=== PATIENT | female | born 1935 | race Caucasian/White ===

== ENCOUNTER 2020-04-25 08:55 | Inpatient (IN) ==
--- NOTE | 2020-03-29 16:28 | PAT Medication Instructions ---
Medication Instructions Date of Service March 29, 2020 Home Medications amlodipine 2.5 mg tablet 2.5 mg PO QAM atorvastatin 20 mg tablet 20 mg PO QPM budesonide 3 mg capsule,delayed,extended release 9 mg PO QAM cholecalciferol (vitamin D3) 50 mcg (2,000 unit) capsule 50 mcg PO QAM hydrochlorothiazide 12.5 mg capsule 12.5 mg PO QAM lactobacillus combination no.4 3 billion cell capsule 3,000 mmu cells PO QAM multivitamin 1 tab PO QAM quinapril 20 mg tablet 20 mg PO QAM acetylcysteine [NAC] 600 mg PO QAM ascorbic acid (vitamin C) [Vitamin C] 500 mg PO QAM coQ10 (ubiquinol) 100 mg PO QAM STOP taking 2 weeks before surgery (or as soon as possible if surgery is within 2 weeks) coQ10 (ubiquinol) 100 mg PO QAM DO NOT take the morning of surgery cholecalciferol (vitamin D3) 50 mcg (2,000 unit) capsule 50 mcg PO QAM hydrochlorothiazide 12.5 mg capsule 12.5 mg PO QAM lactobacillus combination no.4 3 billion cell capsule 3,000 mmu cells PO QAM multivitamin 1 tab PO QAM quinapril 20 mg tablet 20 mg PO QAM acetylcysteine [NAC] 600 mg PO QAM ascorbic acid (vitamin C) [Vitamin C] 500 mg PO QAM Take morning of surgery With a small sip of water, OTHERWISE NOTHING TO EAT OR DRINK AFTER MIDNIGHT: amlodipine 2.5 mg tablet 2.5 mg PO QAM budesonide 3 mg capsule,delayed,extended release 9 mg PO QAM Take evening before surgery atorvastatin 20 mg tablet 20 mg PO QPM Other Notes If you have any questions please call us at [phone] or [phone] or [phone] or [phone]
--- NOTE | 2020-03-31 12:02 | Anesthesiology Consultation ---
Date of Service March 31, 2020 Assessment & Plan (1) Encounter for pre-operative examination: - Per PAT assessment on 03/31: Travel screen- Lives in [facility]. Travel to [facility]. No known COVID-19 positive contacts. No current COVID-19 related symptoms. Surgeon arranging preop COVID testing. Awaiting results. Chart Review Chart Review: Acceptable Risk for Surgery and Patient seen in Pre Admission Testing Teaching & Discussion Pre-Anesthesia Teaching/Discussion Notes: Instructed NPO after midnight before surgery,except medications with 15 cc of water. Medication instructions provided according to the PAT guidelines. History Surgery Operation Date: 04/25/20 13:00 Proposed Procedures p Right Reverse Total Shoulder Arthroplasty - Aric Velazco, Height/Weight Height: 5 ft 3.5 in Weight: 56.5 kg Allergies Allergy/AdvReac Type Severity Reaction Status Date / Time Penicillins Allergy Intermediate hard Verified 04/01/20 08:24 lump/redness at injection site iodine Allergy Mild redness, Verified 04/01/20 08:24 itchy Medications Home Medications Medication Instructions Recorded Confirmed Last Taken amlodipine 2.5 mg tablet 2.5 mg PO QAM 03/01/20 03/24/20 Unknown atorvastatin 20 mg tablet 20 mg PO QPM 03/01/20 03/24/20 Unknown budesonide 3 mg 9 mg PO QAM 03/01/20 03/24/20 Unknown capsule,delayed,extended release cholecalciferol (vitamin D3) 50 50 mcg PO QAM 03/01/20 03/24/20 Unknown mcg (2,000 unit) capsule hydrochlorothiazide 12.5 mg capsule 12.5 mg PO QAM 03/01/20 03/24/20 Unknown lactobacillus combination no.4 3 3,000 mmu cells PO QAM 03/01/20 03/24/20 Unknown billion cell capsule multivitamin 1 tab PO QAM 03/01/20 03/24/20 Unknown quinapril 20 mg tablet 20 mg PO QAM 03/01/20 03/24/20 Unknown acetylcysteine [NAC] 600 mg PO QAM 03/24/20 03/24/20 Unknown ascorbic acid (vitamin C) [Vitamin 500 mg PO QAM 03/24/20 03/24/20 Unknown C] coQ10 (ubiquinol) 100 mg PO QAM 03/24/20 03/24/20 Unknown Past Medical History Medical History (Updated 04/01/20 @ 08:25 by Alice Acevedo) Colitis chronic steroid (budesonide) History of blood transfusion post-op (1989)- autologous Hyperlipidemia Hypertension Osteoarthritis Restless leg syndrome Exercise / Class Metabolic Activity III < 4 Walking/Shop/Light housework Past Family History Family History Sister Family history of diabetes mellitus Past Surgical History Surgical History H/O: hysterectomy History of carpal tunnel surgery RT/LEFT History of colonoscopy History of dilatation and curettage History of hip surgery LEFT HIP History of tonsillectomy and adenoidectomy History of total hip arthroplasty RT/LEFT [place] teeth removed Past Anesthesia History No Hx of Anesthesia Complications (except post-op nausea) and No Family Hx of Anesthesia Complications History of PONV No Hx of Motion Sickness and History of PONV (+ nausea) Social History Smoking Status: Never smoker Do You Dip or Chew Tobacco: No Hx Alcohol Use: Yes Alcohol type: wine and hard liquor alcohol intake frequency: a few times a month Hx Substance Use: No Review of Systems Patient denies chest pain, shortness of breath, fever, chills, cough, wheezing, palpitations. Physical Exam Vital Signs VITALS BP 151/69 P 91 TEMP 98.4 SP02 97%RA RESP 16 PHYSICAL Full neck and c-spine range of motion. Full TMJ range of motion. TMD 3.5 finger breaths Mallampati Score 3 Dentition: missing molars, + left lower/right upper capped side/molar Lungs: clear throughout to auscultation Cardiac: regular rate and rhythm, no murmurs noted Spine: unremarkable Carotid arteries: negative bruit Extremities: no edema Testing Laboratory Results 03/31/20 12:19 03/31/20 12:19 PT 10.5 Seconds (9.0-12.0) 03/31/20 12: INR 1.0 (0.9-1.1) 03/31/20 12:19 APTT 27.6 Seconds (21.0-31.0) 03/31/20 12:19 Blood Type B Positive 03/31/20 12:19 Antibody Screen NEGATIVE 03/31/20 12:19 Electrocardiogram Date: 03/31/20 NSR at 89bpm. NS TWA. Chest X-Ray Date: 03/31/20 FINDINGS: Cardiomediastinal and hilar silhouettes are within normal limits. Calcified plaque of the thoracic aortic arch. No pneumothorax, pleural effusion, airspace consolidation or overt pulmonary edema. Degenerative changes of the joel ulders and spine. Probable loose body of the left subscapularis recess. Convex right curvature of the mid lumbar spine. IMPRESSION: No acute process.
--- NOTE | 2020-03-31 13:02 | XRay Report ---
XR chest Pre-admission PA/Lat HISTORY: 84 years-old Female pat preoperative exam. No acute chest complaints. COMPARISON: None TECHNIQUE: PA and lateral views of the chest FINDINGS: Cardiomediastinal and hilar silhouettes are within normal limits. Calcified plaque of the thoracic ao rtic arch. No pneumothorax, pleural effusion, airspace consolidation or overt pulmonary edema. Degene rative changes of the shoulders and spine. Probable loose body of the left subscapularis recess. Conv ex right curvature of the mid lumbar spine. IMPRESSION: No acute process. ACT 112: Negative or not required by law. The above report was generated using voice recognition software. It may contain grammatical, syntax o r spelling errors. Electronically signed by: Marcos Dennis M.D. 03/31/2020 1:01 PM
[2020-03-31 14:04] LABS: Basophils # (auto) 0.04 K/uL (0-0.2); Basophils % (auto) 0.4 %; Eosinophils # (auto) 0.05 K/uL (0-0.5); Eosinophils % (auto) 0.5 %; Hematocrit (blood only) 44.7 % (37-47); Hemoglobin 14.6 g/dL (12.0-16.0); Immature Granulocytes # (auto) 0.04 K/uL (0.00-0.02); Immature Granulocytes % (auto) 0.4 %; Lymphocytes # (auto) 2.67 K/uL (1.2-3.4); Lymphocytes % (auto) 24.7 %; Mean Corpuscular Hemoglobin 30.2 pg (25-34); Mean Corpuscular Hgb Conc 32.7 g/dL (32-36); Mean Corpuscular Volume 92.5 fL (80-100); Monocytes # (auto) 0.96 K/uL (0.11-0.59); Monocytes % (auto) 8.9 %; Neutrophils # (auto) 7.04 K/uL (1.4-6.5); Neutrophils % (auto) 65.1 %; Platelet Count 337 K/uL (130-400); RDW Coefficient of Variation 15.3 % (11.5-14.5); Red Blood Count 4.83 M/uL (4.2-5.4)
[2020-03-31 14:15] LABS: Partial Thromboplastin Time 27.6 Seconds (21.0-31.0); Prothrombin Time 10.5 Seconds (9.0-12.0)
[2020-03-31 15:08] LABS: BUN Creatinine Ratio 19.7 (10-20); Calcium 9.8 mg/dl (8.5-10.1); Est GFR (African American) 89.8; Est GFR (Non-African American) 77.4; Potassium 3.4 mmol/L (3.5-5.1)
--- NOTE | 2020-04-01 05:42 | Electrocardiogram Report ---
Test Reason : Blood Pressure : / mmHG Vent. Rate : 089 BPM Atrial Rate : 089 BPM P-R Int : 146 ms QRS Dur : 066 ms QT Int : 366 ms P-R-T Axes : 081 088 -03 degrees QTc Int : 445 ms Normal sinus rhythm Nonspecific T wave abnormality Abnormal ECG No previous ECGs available Confirmed by Tarun Aponte ([id number]) on 04/01/2020 5:42:42 AM Referred By: Aric Velazco Confirmed By:Tarun Aponte
--- NOTE | 2020-04-21 07:40 | History & Physical Report ---
Date of Service April 21, 2020 Assessment & Plan (1) Rotator cuff tear arthropathy of right shoulder: We will proceed with a right reverse shoulder arthroplasty. Postoperatively she will be placed in a sling and kept overnight in the hospital for postoperative medical management. She plans to go to outpatient physical therapy at [facility] in [place] upon discharge. Present on Admission?: Yes History of Present Illness Chief Complaint: Primary osteoarthritis of the right shoulder Primary Care Provider: Maco Fallon is a pleasant 84-year-old female who is been dealing with chronic increasing right shoulder pain and weakness. She says she has trouble doing any activities out away from her body. She is trouble brushing her teeth. It is affecting her daily living. I do have an MRI of her shoulder which shows advanced osteoarthritis and some degeneration of the rotator cuff. After failing conservative treatment, she has elected proceed with a right reverse shoulder arthroplasty. Allergies Allergy/AdvReac Type Severity Reaction Status Date / Time Penicillins Allergy Intermediate hard Verified 04/01/20 08:24 lump/redness at injection site iodine Allergy Mild redness, Verified 04/01/20 08:24 itchy Home Medications Home Medications Medication Instructions Recorded Confirmed Type amlodipine 2.5 mg tablet 2.5 mg PO QAM 03/01/20 03/24/20 History atorvastatin 20 mg tablet 20 mg PO QPM 03/01/20 03/24/20 History budesonide 3 mg 9 mg PO QAM 03/01/20 03/24/20 History capsule,delayed,extended release cholecalciferol (vitamin D3) 50 50 mcg PO QAM 03/01/20 03/24/20 History mcg (2,000 unit) capsule hydrochlorothiazide 12.5 mg capsule 12.5 mg PO QAM 03/01/20 03/24/20 History lactobacillus combination no.4 3 3,000 mmu cells PO QAM 03/01/20 03/24/20 History billion cell capsule multivitamin 1 tab PO QAM 03/01/20 03/24/20 History quinapril 20 mg tablet 20 mg PO QAM 03/01/20 03/24/20 History acetylcysteine [NAC] 600 mg PO QAM 03/24/20 03/24/20 History ascorbic acid (vitamin C) [Vitamin 500 mg PO QAM 03/24/20 03/24/20 History C] coQ10 (ubiquinol) 100 mg PO QAM 03/24/20 03/24/20 History Past Med/Surg History Medical History Colitis chronic steroid (budesonide) History of blood transfusion post-op (1989)- autologous Hyperlipidemia Hypertension Osteoarthritis Restless leg syndrome Surgical History H/O: hysterectomy History of carpal tunnel surgery RT/LEFT History of colonoscopy History of dilatation and curettage History of hip surgery LEFT HIP History of tonsillectomy and adenoidectomy History of total hip arthroplasty RT/LEFT [place] teeth removed Family History Sister Family history of diabetes mellitus Social History Smoking Status: Never smoker Second Hand Exposure: No; Hx Alcohol Use: Yes Alcohol type: wine and hard liquor Hx Substance Use: No Preferred Language: Yoruba Sales [employer] Required: No Beliefs That Will Affect Care: None Current Living Situation: Spouse Feels Safe at Home: Yes Review of Systems Review of Systems: All systems reviewed & are unremarkable except as noted in HPI & below Physical Exam Constitutional: WD/WN, vitals as above Eyes: PERRL, conjunctivae normal, anicteric sclerae ENMT: external ear and nose normal, oropharynx normal Neck: trachea midline, no thyromegaly Respiratory: normal respiratory effort Cardiovascular: RRR, no murmur, no edema Gastrointestinal (Abdomen): normal bowel sounds, soft, nontender, no hepatosplenomegaly Musculoskeletal: Physical examination of the right shoulder reveals decreased range of motion and crepitis throughout. There is good strength with full can testing and external rotation. There is tenderness palpation along the anterior glenohumeral joint line. The right upper extremity is neurovascularly intact. Psychiatric: A+Ox3, euthymic affect Results & Data Results & Data ([facility]) Diagnostic Findings Radiographs of the right shoulder show osteoarthritis of the glenohumeral joint. There is joint space narrowing, osteophyte formation, and eddu-ob-tnim articulation. PG Care Time/CCT Total # of Minutes Spent Total Time Spent with Patient: Total time spent is greater than 50% in coordination of care (as documented) at patient's floor/unit and/or counseling patient: Coding Level of Care Code 43533 Initial Inpt Care Lvl 2 Diagnoses Rotator cuff tear arthropathy of right shoulder M75.101; M12.811
[~2020-04-25 08:55] MED LIST: ACETAMINOPHEN 500 MG TAB PO SCH; BUPIVACAINE 0.5 % 5 MG/1 ML PF 10ML VIAL ONE; FAMOTIDINE 20 MG TAB PO SCH; GABAPENTIN 300 MG CAP PO SCH; LR 15ML/HR IV SCH; LR 60ML/HR IV SCH; ROPIVACAINE 0.5% HCL/PF 150 MG, BUPIVACAINE 0.5% MPF 30 ML, EPINEPHrine 30MG/30ML (OR U... INSTIL SCH; TRANEXAMIC ACID 1,000 MG **IV Intra-op IV SCH; TRANEXAMIC ACID 1,000 MG **IV Pre-op IV SCH; ceFAZolin 1000MG 1,000 MG/7.5 ML SYR IV SCH; dexAMETHasone 4 MG TAB PO SCH
[2020-04-25] MEDS ORDERED: LIDOCAINE HCL 2% 2 ML VIAL/AMP(20MG/ML) INFIL ONE (09:43)
[2020-04-25] MEDS ORDERED: PROPOFOL IV EMULSION 10 MG/ML 20 ML VIAL IV ONE (09:43)
[2020-04-25] MEDS ORDERED: fentaNYL citrate 100 MCG/2 ML VIAL ONE ×2 (09:43→10:01)
[2020-04-25] MEDS ORDERED: MIDAZOLAM HCL 1 MG/ML 2ML VIAL ONE ×2 (09:43→10:01)
[2020-04-25] MEDS ORDERED: ONDANSETRON INJ 2 MG/ML 2 ML VIAL ONE (10:01)
[2020-04-25] MEDS ORDERED: ROCURONIUM BROMIDE 10 MG/ML 5 ML VIAL IV ONE (10:03)
[2020-04-25] MEDS ORDERED: HYDROmorphone INJ 1 MG/ML SYRINGE IV PRN (10:43)
[2020-04-25] MEDS ORDERED: PROMETHAZINE HCL 12.5 MG in SODIUM CHLORIDE 0.9% 50 ML IV PRN (10:43)
[2020-04-25] MEDS ORDERED: ePHEDrine sulfate 50 MG/ML AMP IV PRN (10:43)
[2020-04-25] MEDS ORDERED: ONDANSETRON INJ 2 MG/ML 2 ML VIAL IV PRN ×2 (10:43→14:05)
[2020-04-25] MEDS ORDERED: fentaNYL citrate 100 MCG/2 ML VIAL IV PRN (10:43)
[2020-04-25] MEDS ORDERED: METOCLOPRAMIDE HCL INJ 5 MG/ML 2 ML VIAL IV PRN ×2 (10:43→14:05)
[2020-04-25] MEDS ORDERED: ATROPINE SULFATE 0.1 MG/ML 10ML SYR IV PRN (10:43)
--- NOTE | 2020-04-25 10:50 | History & Physical Bridge Note ---
Date of Service April 25, 2020 History & Physical Bridge Note I have examined the patient, reviewed the History & Physical and in the interval since the performance of the History & Physical I have noted the following changes of clinical significance: no changes noted
[2020-04-25] MEDS ORDERED: ORTHO JOINT ANESTHETIC ONE (11:02)
[2020-04-25] MEDS ORDERED: NEOSTIGMINE METHYLSULFATE 5 MG/5 ML SYR ONE (11:50)
[2020-04-25] MEDS ORDERED: GLYCOPYRROLATE 0.2 MG/ML VIAL ONE (11:50)
[2020-04-25] MEDS ORDERED: ePHEDrine sulfate 50 MG/ML SYR ONE (11:50)
--- NOTE | 2020-04-25 12:33 | Operative Report ---
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 (Modifier 59) (Right) - Aric Velazco DO Surgeon Aric Velazco DO Policy Intern Aric Gould PAC Estimated Blood Loss 200 Findings Consistent with Post-Op Diagnosis Specimens Right humeral head Complications none Disposition Disposition: Recovery Room Indications Leeanne is a pleasant 84-year-old female who is been dealing with chronic increasing right shoulder pain. X-rays, MRI, and clinical examination were all diagnostic for advanced osteoarthritis of the right shoulder. After failing conservative treatment, she elected to proceed with a right reverse shoulder arthroplasty. Description of Procedure A CPT code modifier 59: The long head of the biceps tendon was enlarged and inflamed consistent with tendinopathy. A tenodesis was opted. This was a separate and distinct portion of the procedure. For these reasons, a CPT code modifier 59 will be added to this case. Implants used: I used a [employer] Comprehensive reverse total shoulder arthroplasty system with a size 12 press fit micro humeral stem, a +6 humeral tray and a standard humeral bearing, a 25 mm small augmented baseplate with a 6.5 mm central screw and superior and inferior locking screws, and a size 40 mm eccentric glenosphere. Leeanne arrived at [facility] for the above procedure. She was seen in the preoperative holding area and the operative extremity was identified and signed. She was given a preoperative antibiotic, TXA, and an interscalene nerve block. She was taken back to the operating room, laid on table in supine position, and put under general anesthesia. She was then put into the beachchair position. The shoulder was then prepped and draped in sterile fashion. A timeout was done and the patient and the operative extremity was properly identified. A deltopectoral approach was used. Dissection was taken down through the fascia and the deltoid was retracted laterally and the conjoined tendon was retracted medially. The anterior shoulder was exposed. The biceps groove was opened up and the biceps tendon was examined extensively. The biceps tendon demonstrated enlargement and inflammatory changes consistent with longstanding inflammation in the context of osteoarthritis and cuff arthropathy. The long head of the biceps tendon was then tenodesed to the upper border of the pectoralis major. This was a separate and distinct portion of the procedure. The subscapularis was then directly released off the lesser tuberosity with a peel technique. The inferior capsule was released and the humeral head was dislocated. A canal finding reamer was sent down the center of the humeral canal. S equential reaming up to a size 12 reamer was done. Off that reamer, a proximal humeral resection guide was placed. The proximal humerus was resected at 135 of inclination and 25 of retroversion. Osteophytes were then removed and the glenoid was exposed. Time was spent doing a complete capsular and labral release. The glenoid guide was then placed in the inferior aspect of the glenoid. A 3.2 mm Steinmann pin was then placed into the glenoid vault at 10 of inclination. The glenoid baseplate was then reamed. The final size 25 mm small augment baseplate was then impacted in the place. A 6.5 mm central screw was then placed followed by superior and inferior locking screws. A 40 mm eccentric glenosphere was then impacted into place. Surrounding soft tissues were then injected with 100 cc an orthopedic pain control cocktail. The proximal humerus was then exposed. Sequential broaching of the humerus up to a size 12 broach was done. Off that broach a +6 humeral tray was trialed. The shoulder was then reduced, brought through a full range of motion, and felt to be stable. The shoulder was then dislocated and the broach was removed. The final size 12 micro press-fit humeral stem was then impacted into place. A standard humeral bearing was then snapped onto a +6 humeral tray. The humeral tray was then impacted onto the humeral stem. The shoulder was once again reduced, brought through a full range of motion, and felt to be stable. The subscapularis was then tenodesed back to the lesser tuberosity with transosseous FiberWire sutures and side to side sutures with the arm in 45 of external rotation. A dilute betadyne lavage was then done for 3 minutes. The joint was then irrigated with normal saline solution. Hemostasis was obtained. The interval was closed with 2-0 Vicryl suture. The skin was then closed with 2-0 Vicryl and juan. When the adhesive dressings were being removed there was a large skin tear. There is almost a degloving type injury of just the very most superficial epithelial layer. This was documented. The shoulder was then dressed with Adaptic, large bulky dressing and paper tape. The arm was rested in a regular arm sling. She was then extubated and transferred to a hospital bed. She taken to the postanesthesia care unit in stable condition. She tolerated the procedure well. Aric Gould PA-C, was present for the entire procedure. He was critical for patient positioning, prepping, draping, retraction exposure, wound closure and application of sterile dressing. I attest to the content of the Intraoperative Record and any orders documented therein. Any exceptions are noted below.
--- NOTE | 2020-04-25 13:42 | XRay Report ---
XR shoulder RT min 2V routine HISTORY: 84 years-old Female Post op right shoulder total joint arthroplasty COMPARISON: Chest radiograph 03/31/2020 TECHNIQUE: 2 views of the right shoulder FINDINGS: Reverse right shoulder total joint arthroplasty demonstrates satisfactory alignment. No acute fractur e or retained foreign body. Expected postsurgical soft tissue swelling and deep tissue air with overl edis skin juan. IMPRESSION: Reverse right shoulder total joint arthroplasty with expected postoperative changes. ACT 112: Negative or not required by law. The above report was generated using voice recognition software. It may contain grammatical, syntax o r spelling errors. Electronically signed by: Marcos Dennis M.D. 04/25/2020 1:41 PM
--- NOTE | 2020-04-25 13:59 | Anesthesiology Progress Note ---
Date of Service April 25, 2020 Anesthesia Post Procedure Vital Signs Vital Signs: Temp Pulse Pulse Resp BP Pulse Ox 04/25/20 13:30 36.3 C L 83 21 123/60 93 04/25/20 13:15 78 21 130/61 94 04/25/20 13:05 78 21 136/74 95 04/25/20 12:55 75 21 141/65 H 99 04/25/20 12:49 36.0 C L 78 19 139/61 99 04/25/20 10:08 36.8 C 88 18 207/98 H 100 Pain Intensity Right Shoulder: Pain Intensity: 0 Transfer of Care Handoff Completed per policy Notes Mental Status: alert / awake / arousable and participated in evaluation Patient Amnestic to Procedure: Yes Nausea / Vomiting: adequately controlled Pain: adequately controlled Airway Patency, RR, SpO2: stable & adequate BP & HR: stable & adequate Hydration State: stable & adequate Anesthetic Complications: no major complications apparent
[2020-04-25] MEDS ORDERED: bisacodyL 10 MG SUPP PR PRN (14:05)
[2020-04-25] MEDS ORDERED: MAGNESIUM HYDROXIDE SUSP 30 ML UDC PO PRN (14:05)
[2020-04-25] MEDS ORDERED: NALOXONE HCL 0.4 MG/1 ML VIAL/CARP IV PRN (14:05)
[2020-04-25] MEDS ORDERED: HYDROmorphone INJ 0.5 MG/0.5 ML SYR IV PRN (14:05)
[2020-04-25] MEDS ORDERED: traMADol HCL 50 MG TABLET PO PRN (14:05)
[2020-04-25] MEDS: SODIUM CHLORIDE 0.9% 1000ML 1,000 ML IV SCH (14:43)
[2020-04-25] MEDS: ACETAMINOPHEN 500 MG TAB PO SCH ×2 (14:44→21:00)
[2020-04-25] MEDS ORDERED: COUGH DROP (SUGAR FREE) LOZ 24 LOZ/1 BOX BUCCAL ONE (18:02)
[2020-04-25] MEDS: KETOROLAC TROMETHAMINE 15 MG/ML VIAL IV SCH ×2 (18:06→23:50)
[2020-04-25] MEDS: ceFAZolin 2000MG 2,000 MG/15 ML SYR IV SCH (20:58)
[2020-04-25] MEDS: DOCUSATE SODIUM 100 MG CAP PO SCH (20:58)
[2020-04-25] MEDS ORDERED: ATORVASTATIN 20 MG TAB PO SCH (21:00)
[2020-04-25] MEDS ORDERED: SENNA 8.6 MG TAB PO SCH (21:00)
[2020-04-26] MEDS: SODIUM CHLORIDE 0.9% 1000ML 1,000 ML IV SCH (01:25)
[2020-04-26] MEDS: KETOROLAC TROMETHAMINE 15 MG/ML VIAL IV SCH ×2 (05:12→12:43)
[2020-04-26] MEDS: ceFAZolin 2000MG 2,000 MG/15 ML SYR IV SCH (05:12)
[2020-04-26] MEDS: ACETAMINOPHEN 500 MG TAB PO SCH (05:12)
[2020-04-26 06:17] LABS: Hematocrit (blood only) 36.3 % (37-47); Hemoglobin 12.7 g/dL (12.0-16.0); Immature Granulocytes # (auto) 0.05 K/uL (0.00-0.02); Immature Granulocytes % (auto) 0.3 %; Lymphocytes # (auto) 1.16 K/uL (1.2-3.4); Lymphocytes % (auto) 6.5 %; Mean Corpuscular Hemoglobin 32.1 pg (25-34); Mean Corpuscular Volume 91.7 fL (80-100); Mean Platelet Volume 9.6 fL (7.4-10.4); Monocytes # (auto) 1.19 K/uL (0.11-0.59); Monocytes % (auto) 6.6 %; Neutrophils # (auto) 15.52 K/uL (1.4-6.5); Neutrophils % (auto) 86.6 %; Platelet Count 285 K/uL (130-400); RDW Coefficient of Variation 14.8 % (11.5-14.5); RDW Standard Deviation 50.3 fL (36.4-46.3); Red Blood Count 3.96 M/uL (4.2-5.4); White Blood Count 17.92 K/uL (4.8-10.8)
[2020-04-26 06:52] LABS: BUN Creatinine Ratio 18.2 (10-20); Creatinine Clr Calc Pharmacy 44.9 ml/min; Est GFR (African American) 76.7; Est GFR (Non-African American) 66.2; Potassium 3.9 mmol/L (3.5-5.1)
--- NOTE | 2020-04-26 06:59 | Orthopedic Progress Note ---
Date of Service April 26, 2020 Assessment & Plan (1) Status post reverse total replacement of right shoulder: Overall she is doing well. She is not having much pain in the right shoulder. She will be seen by physical therapy this morning for ambulation and range of motion exercises. She can be discharged home later today. She will follow-up with orthopedics in 2 weeks. Present on Admission?: Yes Admission and Anticipated Discharge Date Admission Date: April 25, 2020 Cindi Fallon was seen and examined at bedside this morning. Overall she is doing very well. She is not having any pain in the right shoulder. I talked to her and her family earlier about the skin tear on her right arm. She understands that she has very thin skin. She did not seem too concerned about it. She is happy that her shoulder is doing well. She has no new complaints. Physical Exam Musculoskeletal: On physical examination of the right shoulder, the dressing is clean and dry. She is wearing her sling as instructed. Her radial, median, and ulnar nerves are checked intact at her wrist. Her axillary nerve was not checked yet. Results & Data ([facility]) Vital Signs (Past 12 Hours) Vital Signs Temp Pulse Pulse Resp BP Pulse Ox 04/26/20 02:30 36.4 C L 77 16 147/77 H 94 04/25/20 22:57 36.7 C 79 16 138/76 97 04/25/20 20:15 36.4 C L 81 16 152/78 H 96 Laboratory Results H & H 03/31/20 04/26/20 Range/Units 12:19 05:38 Hgb 14.6 12.7 (12.0-16.0) g/dL Hct 44.7 36.3 L (37-47) % Coagulation 03/31/20 Range/Units 12:19 INR 1.0 (0.9-1.1) Diagnostic Findings Postoperative x-rays of the right shoulder show the prosthesis to be in anatomic alignment without any evidence of fracture, dislocation, or loosening. PG Care Time/CCT Total # of Minutes Spent Total Time Spent with Patient: Total time spent is greater than 50% in coordination of care (as documented) at patient's floor/unit and/or counseling patient: Coding Level of Care Code None Diagnoses Status post reverse total replacement of right shoulder Z96.611
--- NOTE | 2020-04-26 07:01 | Discharge Summary ---
Date of Service April 26, 2020 Admission HPI Per Admitting Provider Leeanne is a pleasant 84-year-old female who is been dealing with chronic increasing right shoulder pain and weakness. She says she has trouble doing any activities out away from her body. She is trouble brushing her teeth. It is affecting her daily living. I do have an MRI of her shoulder which shows advanced osteoarthritis and some degeneration of the rotator cuff. After failing conservative treatment, she has elected proceed with a right reverse shoulder arthroplasty. Principal Diagnosis Right reverse shoulder replacement Discharge Data Allergies Allergy/AdvReac Type Severity Reaction Status Date / Time iodine Allergy Mild redness, Verified 04/25/20 10:04 itchy Penicillins AdvReac Intermediate hard Verified 04/25/20 10:04 lump/redness at injection site Consultations 04/25/20 14:05 Consult Case Management - Discharge Planning Routine Procedures Performed Operation Date: 04/25/20 11:10 Actual Procedures p Right Reverse Total Shoulder Arthroplasty(Right) - Aric Velazco DO Ordered Studies 04/25/20 05:00 US - OR guided needle placemen Routine Hospital Course (1) Status post reverse total replacement of right shoulder: On April 25, 2020 Tai arrived at [facility] and underwent a right reverse shoulder replacement without complication. She had a general anesthetic and a right interscalene nerve block. Postoperatively she was placed in a sling and transferred to the general orthopedic floors. The hospital course was uneventful. On postop day #1 the H&H was stable and the pain was well controlled. She was able to participate well with physical therapy doing ambulation and range of motion exercises. She was then discharged home. She will follow-up with orthopedics in 2 weeks. Total Time Total Time Spent Total Time Spent (In Minutes): 20 Discharge Plan Discharge Items Patient Disposition: Home - Home Health Services Reason For Visit: Right Shoulder Degenerative Joint Disease Discharge Diagnosis: Right shoulder replacement Activity: As commented below Non-emergency contact: Surgeon Call non-emergency contact if: your wound has increased redness and your wound has increased drainage Follow-up/Referrals: Maco Ballard [Primary Care Provider] - Diet: Regular Addtl Attending Provider Instructions: Activity and Therapy Recommendations: * If you are using [facility] then therapy will be provided at your home until they feel you have accomplished all of your goals. * If you are using [facility] then Physical Therapy will be provided until they feel you are ready to start Outpatient Physical Therapy. * If you are not using home therapy then Outpatient Physical Therapy should start about 3-5 days from your day of surgery. Therapy will last about 8-12 weeks * Wear your sling for 3 weeks, unless otherwise instructed. You may remove your sling to shower and to dress, but otherwise, you should be in your sling at all times, including while sleeping * The shoulder replacement is very stable and you can use your hand while in the sling * You were shown a series of exercises in the hospital. Do these exercises daily including the exercises you were shown in physical therapy. Medications: * Narcotic You will likely be sent home from the hospital with a prescription for the narcotic pain medication that worked best throughout your stay. * Other medications may be prescribed for specific circumstances. If you have any questions, please call the office at . * Resume previous home medications unless otherwise instructed Dressing Care: Leave the Silverlon dressing in place for 7 days. After 7 days you may remove the dressing. If the incision is not draining then you may leave the juan open to air. If there is a little bit of drainage or if the juan are getting stuck on your clothing then cover the incision with a dry dressing. The juan will be removed at your 2 week follow-up appointment. Showering: You may shower with the Silverlon dressing in place. Do not let the shower spray hit the dressing directly. Pat the Silverlon dressing dry. If the dressing becomes wet underneath, then simply remove the dressing. Keep the incision dry until you are 7 days out from the day of surgery. After 7 days you may remove the Silverlon dressing and shower with the juan exposed. Let soapy water run over the juan and pat them dry. Do not scrub or soak the incision. Things To Watch For: * Drainage from the incision site that occurs more than one week after your surgery. * Increased redness at the incision site. * Fever above 102 degrees Fahrenheit. * Unusual chest pain or shortness of breath. * Call [facility] at with any of the above problems Follow-Up Visit: Follow-up with Dr. Velazco's PA (Aric Gould) 2-3 weeks after your day of surgery. He will remove your juan and answer any questions. If you have any additional questions or concerns, Dr Velazco is usually in the office at the same time and will be available An appointment was probably scheduled when you signed-up for surgery in the office. If you have any questions call More detailed instructions as well as Frequently Asked Questions were provided in a folder by our office when you signed-up for surgery. Please review these instructions when you get home. If you have any further questions or concerns, please feel free to call the office at [phone] Pending Studies at Discharge: No Stand-Alone Forms: [facility] [employer] Smoking Cessation Medications and DC Order Prescriptions: New tramadol 50 mg Tablet 50 mg PO Q4H PRN (Reason: pain) Qty: 30 RF: 0 Continued hydrochlorothiazide 12.5 mg capsule 12.5 mg PO QAM RF: 0 quinapril 20 mg tablet 20 mg PO QAM RF: 0 amlodipine 2.5 mg tablet 2.5 mg PO QAM RF: 0 cholecalciferol (vitamin D3) 50 mcg (2,000 unit) capsule 50 mcg PO QAM RF: 0 multivitamin Tablet 1 tab PO QAM RF: 0 budesonide [Entocort EC] 3 mg capsule,delayed,extend.release 9 mg PO QAM RF: 0 Probiotic 3 billion cell capsule 3,000 mmu cells PO QAM RF: 0 atorvastatin 20 mg tablet 20 mg PO QPM RF: 0 ascorbic acid (vitamin C) [Vitamin C] 500 mg Tablet 500 mg PO QAM RF: 0 acetylcysteine [NAC] 600 mg Capsule 600 mg PO QAM RF: 0 coQ10 (ubiquinol) 100 mg Capsule 100 mg PO QAM RF: 0 Discharge Orders: Discharge Order (Routine); Ordered 04/26/20 Ordered By: Aric Velazco Admission Data Admit Date/Time: 04/25/20 12:48 Attending Provider: Aric Velazco Admit Provider: Aric Velazco Primary Care Provider: Maco Ballard Coding Level of Care Code D/C Day Management <30 mins Diagnoses Status post reverse total replacement of right shoulder Z96.611
[2020-04-26] MEDS ORDERED: dexAMETHasone 4 MG TAB PO SCH (08:00)
[2020-04-26] MEDS ORDERED: ENALAPRIL MALEATE 10 MG TAB PO SCH (09:00)
[2020-04-26] MEDS ORDERED: BUDESONIDE EC 3 MG CAP PO SCH (09:00)
[2020-04-26] MEDS ORDERED: hydroCHLOROthiazide 25 MG TAB PO SCH (09:00)
[2020-04-26] MEDS ORDERED: MULTIVITAMIN TAB PO SCH (09:00)
[2020-04-26] MEDS ORDERED: amLODIPine BESYLATE 5 MG TAB PO SCH (09:00)
[2020-04-26] MEDS ORDERED: NON-FORMULARY MEDICATION (Lactobacillus Combination No.4 [Probiotic] 3,000 mmu cells) PO SCH (09:00)
[2020-04-26] MEDS: DOCUSATE SODIUM 100 MG CAP PO SCH (09:34)
== END 2020-04-26 13:39 | disposition home or self-care (01) | DRG 483 ==
LOC: ASU 08:55 → 3E 12:48